=== PATIENT | male | born 1980 | race American Indian/Alaskan Native ===

== ENCOUNTER 2021-11-17 22:35 | Emergency (ER) | payer SELFPAY ==
[2021-11-17 23:20] VITALS: BP 210/132
--- NOTE | 2021-11-18 19:54 | Electrocardiograph Report ---
[facility] Test Date: 2021-11-17 Test Time: 22:44:59 Pat Name: MERCY DHALIWAL Department: Room: Gender: M Time Buyer: MINERVA : 1980 Requested By: ED DOC Order Number: [id number] Reading MD: Lang Palomo Measurements Intervals [place] Rate: 118 P: 60 MO: 169 QRS: 53 QRSD: 86 T: 64 QT: 329 QTc: 462 Interpretive Statements Sinus tachycardia Left atrial enlargement Left ventricular hypertrophy Nonspecific lateral T wave abnormality No previous ECG available for comparison Electronically Signed On 11-18-2021 19:54:24 EDT by Lang Palomo
== END 2021-11-18 03:58 | disposition home or self-care (01) ==
LOC: ED 22:35
DX: R07.9 Chest pain, unspecified (principal); R06.02 Shortness of breath; Z53.21 Procedure and treatment not carried out due to patient leaving prior to being seen by health care provider
CPT/HCPCS: 93005